=== PATIENT | male | born 1955 | race Caucasian/White ===

== ENCOUNTER 2018-05-21 14:11 | Inpatient (IN) ==
[2018-05-21] MEDS ORDERED: Acetaminophen 325 MG Tablet PO ONE (15:20)
[2018-05-21] MEDS ORDERED: MethylPREDNISolone Sod Succinate Inj 125 MG/2 ML Vial IV.PUSH ONE (15:20)
--- NOTE | 2018-05-21 15:22 | ED ---
HPI General Chief complaint: Fever Stated complaint: Poss Fever Time Seen by Provider: 05/21/18 15:13 History of Present Illness HPI narrative: 63-year-old male with history of Parkinson's disease, hypertension and hyperlipidemia presents for evaluation of fever, cough. Symptoms started this morning. The cough is productive with little bit of sputum. Reports maximum temperature at home of 102 degrees. He denies abdominal pain, vomiting, diarrhea, dysuria, flank pain. Symptoms are moderate. No recent travel. No other complaints. Related Data Home Medications Medication Instructions Recorded Confirmed aspirin [Aspirin Childrens] 81 mg PO DAILY 05/21/18 05/21/18 carbidopa-levodopa [Sinemet] 2 tab PO QID 05/21/18 05/21/18 folic acid 0.4 mg PO DAILY 05/21/18 05/21/18 gabapentin 300 mg PO TID 05/21/18 05/21/18 metoprolol tartrate 50 mg PO BID 05/21/18 05/21/18 simvastatin 40 mg PO QPM 05/21/18 05/21/18 Allergies Allergy/AdvReac Type Severity Reaction Status Date / Time No Known Allergies Allergy Verified 05/21/18 14:49 Review of Systems ROS: all other systems reviewed are negative PMFSH Medical History Medical History High cholesterol (Acute) Hypertension (Acute) Parkinson disease (Acute) Social History Social History Substance History: No History of Abuse Second Hand Smoke Exposure: Yes Smoking Status: Current every day smoker Tobacco Type: Cigarettes How Often Do You Have a Drink Containing Alcohol: Never Recent Travel in [facility] within the Last 8 Weeks: No Recent Out of Country Travel within the Last 8 Weeks: No Exam Narrative Exam Narrative: GENERAL: Well-developed well-nourished male in no acute distress SKIN: Warm and dry. HEAD: Atraumatic. Normocephalic. EYES: Pupils equal and round. No scleral icterus. No injection or drainage. ENT: No nasal bleeding or discharge. Mucous membranes pink and moist. NECK: Trachea midline. No JVD. CARDIOVASCULAR: Regular rate and rhythm. No murmur appreciated. RESPIRATORY: No accessory muscle use. Wheezing and rhonchi noted bilaterally with some crackles in the right lung base. GASTROINTESTINAL: Abdomen soft, non-tender, nondistended. Hepatic and splenic margins not palpable. MUSCULOSKELETAL: No obvious deformities. No clubbing. No cyanosis. No edema. NEUROLOGICAL: Awake and alert. No obvious cranial nerve deficits. Motor grossly within normal limits. Tremor noted. PSYCHIATRIC: Appropriate mood and affect; insight and judgment normal. Course Initial Documented Vital Signs Temperature 100.3 F H 05/21/18 14:46 Pulse Rate 101 H 05/21/18 14:46 Respiratory Rate 18 05/21/18 14:46 Blood Pressure 143/69 H 05/21/18 14:46 Pulse Oximetry 92 L 05/21/18 14:46 Last Documented Vital Signs Temperature 99 F 05/21/18 17:20 Pulse Rate 80 05/21/18 15:42 Respiratory Rate 24 05/21/18 17:20 Blood Pressure 143/69 H 05/21/18 14:46 Pulse Oximetry 92 L 05/21/18 17:28 Medical Decision Making MDM Narrative Medical decision making narrative: The patient was placed on ECG monitoring pulse oximetry. Lab work, chest x-ray ordered. The patient was given Solu- Medrol and DuoNeb treatment. Lab work notable for WBC count of 12.7. Influenza antigen is negative. Concern is that the patient is developing pneumonia in the right lower lobe, the patient was started on Rocephin and azithromycin. After DuoNeb treatment and Solu-Medrol the patient was ambulated and his pulse oximetry is 89% while walking. Therefore the patient will be admitted for further treatment. Medical Screen Exam Complete: Yes Emergency Medical Condition: Yes Differential Diagnosis Differential Diagnosis: Pneumonia, COPD, bronchitis, influenza Lab Data Result diagrams: 05/21/18 15:30 05/21/18 15:30 Lab Results 05/21/18 05/21/18 05/21/18 Range/Units 15:30 15:30 15:47 WBC 12.7 H (4.0-11.0) th/mm3 RBC 4.64 (4.50-5.90) mil/mm3 Hgb 16.1 (13.0-17.0) gm/dL Hct 44.6 (39.0-51.0) % MCV 96.1 (80.0-100.0) fL MCH 34.7 H (27.0-34.0) pg MCHC 36.1 H (32.0-36.0) % RDW 12.8 (11.6-17.2) % Plt Count 245 (150-450) th/mm3 MPV 7.4 (7.0-11.0) fL Neut % (Auto) 87.5 H (16.0-70.0) % Lymph % (Auto) 6.6 L (9.0-44.0) % [place] % (Auto) 4.9 (0.0-8.0) % Eos % (Auto) 0.4 (0.0-4.0) % Baso % (Auto) 0.6 (0.0-2.0) % Neut # (Auto) 11.1 H (1.8-7.7) th/mm3 Lymph # (Auto) 0.8 L (1.0-4.8) th/mm3 [place] # (Auto) 0.6 (0.0-0.9) th/mm3 Eos # (Auto) 0.1 (0.0-0.4) th/mm3 Baso # (Auto) 0.1 (0.0-0.2) th/mm3 WBC Differential . Differential Comment Auto diff final Sodium 138 (136-145) meq/L Potassium 4.1 (3.5-5.1) meq/L Chloride 104 (98-107) meq/L Carbon Dioxide 27.4 (21.0-32.0) meq/L Anion Gap 7 (5-15) meq/L BUN 11 (7-18) mg/dL Creatinine 1.06 (0.60-1.30) mg/dL Estimated GFR 70 L (>89) mL/min Random Glucose 114 H (74-106) mg/dL Lactic Acid 1.7 (0.4-2.0) mmol/L Calcium 8.4 L (8.5-10.1) mg/dL Magnesium 1.5 (1.5-2.5) mg/dL Total Bilirubin 0.6 (0.2-1.0) mg/dL AST 11 L (15-37) U/L ALT 8 L (12-78) U/L Alkaline Phosphatase 57 (45-117) U/L Total Protein 7.0 (6.4-8.2) g/dL Albumin 3.8 (3.4-5.0) g/dL Imaging Data Radiologist's impression: Chest X-Ray 05/21/18 15:19 CONCLUSION: Negative for acute process Discharge Plan Discharge Disposition Patient Disposition: ED Admit(ED Internal Use Only) Discharge Condition Condition: Stable Discharge Order Discharge Orders: ED Use Only Admit Order (Routine); Ordered 05/21/18 Ordered By: Robin Hung Discharge Details Diagnosis: Hypoxia, Bronchitis, Pneumonia Physicians Team ED Provider: Frankie Pineda ED Midlevel Provider: Robin Hung Primary Care Provider: UNKNOWN, Rxs /Orders / Referrals /Forms Prescriptions: No Action simvastatin 20 mg Tablet 40 mg PO QPM RF: 0 gabapentin 300 mg Capsule 300 mg PO TID RF: 0 aspirin [Aspirin Childrens] 81 mg Tablet,Chewable 81 mg PO DAILY RF: 0 carbidopa-levodopa [Sinemet] 25-100 mg Tablet 2 tab PO QID RF: 0 metoprolol tartrate 25 mg Tablet 50 mg PO BID RF: 0 folic acid 400 mcg Tablet 0.4 mg PO DAILY RF: 0 Discharge Interventions Interventions: Vital Signs Last Done: 05/21/18 17:28 Status ED Status: With Doctor
--- NOTE | 2018-05-21 15:42 | XR ---
EXAM DATE: 05/21/2018 3:36 PM EST AGE/SEX: 63 years / Male INDICATIONS: . Shortness of breath, cough, and chest tightness with fever. CLINICAL DATA: This is the patient's initial encounter. Patient reports that signs and symptoms have been present for 3 days and indicates a pain score of 0/10. MEDICAL/SURGICAL HISTORY: None. None. COMPARISON: No prior exams available for comparison. FINDINGS: PA and lateral views of the chest demonstrate the lungs to be symmetrically aerated without evidence of mass, infiltrate or effusion. The cardiomediastinal contours are unremarkable. Osseous structures are intact. CONCLUSION: Negative for acute process Electronically signed by: Humberto Jiang MD Board Certified Radiologist 05/21/2018 3:40 PM EST
[2018-05-21] MEDS ORDERED: Azithromycin Inj 500 MG in Sodium Chlor 0.9% Inj 250 ML IV.SIG ONE (15:44)
[2018-05-21 16:03] LABS: Baso # (Auto) 0.1 th/mm3 (0.0-0.2); Baso % (Auto) 0.6 % (0.0-2.0); Eos # (Auto) 0.1 th/mm3 (0.0-0.4); Eos % (Auto) 0.4 % (0.0-4.0); Hematocrit 44.6 % (39.0-51.0); Hemoglobin 16.1 gm/dL (13.0-17.0); Lymph # (Auto) 0.8 th/mm3 (1.0-4.8); Lymph % (Auto) 6.6 % (9.0-44.0); Mean Corpuscular Hemoglobin 34.7 pg (27.0-34.0); Mean Corpuscular Volume 96.1 fL (80.0-100.0); Mean Platelet Volume 7.4 fL (7.0-11.0); Mono # (Auto) 0.6 th/mm3 (0.0-0.9); Mono % (Auto) 4.9 % (0.0-8.0); Neut # (Auto) 11.1 th/mm3 (1.8-7.7); Neut % (Auto) 87.5 % (16.0-70.0); Platelet Count 245 th/mm3 (150-450); Red Blood Count 4.64 mil/mm3 (4.50-5.90); Red Cell Distribution Width 12.8 % (11.6-17.2); White Blood Count 12.7 th/mm3 (4.0-11.0)
[2018-05-21 16:05] LABS: Mean Corpuscular HGB Conc 36.1 % (32.0-36.0)
[2018-05-21 16:23] LABS: Alanine Aminotransferase 8 U/L (12-78); Albumin 3.8 g/dL (3.4-5.0); Anion Gap 7 meq/L (5-15); Aspartate Aminotransferase 11 U/L (15-37); Blood Urea Nitrogen 11 mg/dL (7-18); Calcium 8.4 mg/dL (8.5-10.1); Carbon Dioxide 27.4 meq/L (21.0-32.0); Chloride 104 meq/L (98-107); Glomerular Filtration Rate 70 mL/min (>89); Glucose,Random 114 mg/dL (74-106); Magnesium 1.5 mg/dL (1.5-2.5); Potassium 4.1 meq/L (3.5-5.1); Sodium 138 meq/L (136-145)
[2018-05-21 16:25] LABS: Alkaline Phosphatase 57 U/L (45-117)
--- NOTE | 2018-05-21 18:21 | P.HP ---
History of Present Illness Primary Care Physician: UNKNOWN History of Present Illness: 63-year-old white male being admitted for acute hypoxic respiratory failure. Patient was in his usual state of health until about yesterday evening start beginning feeling tired. This morning he had developed some nausea but no vomiting and no abdominal pain, his measured he had a fever of about 102. Patient reports having some nasal congestion and a wet sounding cough, denies having any angela chest pain or shortness of breath. In the emergency department he was noted to have his saturations dipped to 89% while ambulating, minimal leukocytosis at 12 K,, had some mild wheezing on exam by ED staff.. Chest x-ray done as well as EKG which I apparently reviewed which is negative for any acute findings. Flu swab was negative, blood cultures were obtained. Patient was given Rocephin and azithromycin and Solu- Medrol. Inpatient Certification: I certify that the inpatient services were ordered in accordance with Medicare regulations governing the order. This includes certification that hospital inpatient services are reasonable and necessary and in the case of services not specified as inpatient-only under 42 CFR 419.22(n), that they are appropriately provided as inpatient services in accordance to with the 2-midnight benchmark under 43 CFR 412.3(e) Estimated Total Length of Stay (Days): 2 Plans for Post Hospital Care: Not yet determined Review of Systems All other systems reviewed negative except as stated in HPI PMFSH - History History Provided By: Patient - Medical History Medical History: Medical History (Last Reviewed 05/21/18 @ 18:19 by Hany Ruelas MD) High cholesterol Hypertension Parkinson disease - Family History Family History: Family History (Last Updated 05/21/18 @ 18:19 by Hany Ruelas MD) Other Colon cancer Diabetes - Social History I have reviewed the patient's Social History: Yes - Tobacco History Second Hand Smoke Exposure: Yes Tobacco Use In Past 30 Days: Yes Smoking Status: Current every day smoker Tobacco Type: Cigarettes - Alcohol History How Often Do You Have a Drink Containing Alcohol: Never - Substance Use History Substance History: No History of Abuse - Travel History Recent Travel in the [place] Within the Last 8 Weeks: No Recent Travel Out of the Country Within the Last 8 Weeks: No - Immunization History Tetanus Immunization: <5 Years Medications and Allergies Active Medications: Active Medications Sodium Chloride (Ns Flush) 2 ml IV.FLUSH BID CHAPARRITA Sodium Chloride (Ns Flush) 2 ml IV.FLUSH PRN PRN PRN Reason: FLUSH AFTER USING IV ACCESS Allergies Allergy/AdvReac Type Severity Reaction Status Date / Time No Known Allergies Allergy Verified 05/21/18 14:49 Home Medications Medication Instructions Recorded Confirmed Type aspirin [Aspirin Childrens] 81 mg PO DAILY 05/21/18 05/21/18 History carbidopa-levodopa [Sinemet] 2 tab PO QID 05/21/18 05/21/18 History folic acid 0.4 mg PO DAILY 05/21/18 05/21/18 History gabapentin 300 mg PO TID 05/21/18 05/21/18 History metoprolol tartrate 50 mg PO BID 05/21/18 05/21/18 History simvastatin 40 mg PO QPM 05/21/18 05/21/18 History Exam Vital signs: Vital Signs 05/21/18 14:46 05/21/18 15:42 05/21/18 16:04 Temperature 100.3 F H 100.3 F H Pulse Rate 101 H 80 Respiratory Rate 18 20 Blood Pressure 143/69 H Pulse Oximetry 92 L 05/21/18 17:20 05/21/18 17:28 Temperature 99 F Pulse Rate 95 H Respiratory Rate 24 20 Blood Pressure 91/53 L Pulse Oximetry 89 L 93 L Intake & Output 05/20/18 05/21/18 05/21/18 18:59 06:59 18:59 Intake Total 350 / 350 Balance 350 / 350 Weight 89.811 kg Intake: IV 350 / 350 Azithromycin Inj 500 MG In NS 250 / 250 Inj 250 ML @ 250 mls/hr IV.SIG ONCE ONE Rx#:[id number] Rocephin Inj 2,000 MG In NS Inj 100 / 100 100 ML @ 200 mls/hr IV.SIG ONCE ONE Rx#:[id number] Narrative: VS: afebrile GENERAL: Middle-aged white male, well-nourished, no acute distress SKIN: Warm and dry. EYES: No scleral icterus. No injection or drainage. ENT: No nasal bleeding or discharge. Mucous membranes pink and moist. CARDIOVASCULAR: Regular rate and rhythm. no murmurs RESPIRATORY: No accessory muscle use. Very faint end expiratory wheezing GASTROINTESTINAL: Abdomen soft, non-tender, nondistended. Extremities: No clubbing, cyanosis, or edema. No obvious deformities. MUSCULOSKELETAL: adequate muscle bulk and tone for age and habitus NEUROLOGICAL: Awake and alert. No obvious cranial nerve deficits. No facial droop nor slurred speech noted. PSYCHIATRIC: Appropriate mood and affect; insight and judgment normal. Results - Labs CBC & Chem 7: 05/21/18 15:30 05/21/18 15:30 Labs: Laboratory Results - last 24 hr 05/21/18 05/21/18 05/21/18 15:30 15:30 15:47 WBC 12.7 H RBC 4.64 Hgb 16.1 Hct 44.6 MCV 96.1 MCH 34.7 H MCHC 36.1 H RDW 12.8 Plt Count 245 MPV 7.4 Neut % (Auto) 87.5 H Lymph % (Auto) 6.6 L [place] % (Auto) 4.9 Eos % (Auto) 0.4 Baso % (Auto) 0.6 Neut # (Auto) 11.1 H Lymph # (Auto) 0.8 L [place] # (Auto) 0.6 Eos # (Auto) 0.1 Baso # (Auto) 0.1 WBC Differential . Differential Comment Auto diff final Sodium 138 Potassium 4.1 Chloride 104 Carbon Dioxide 27.4 Anion Gap 7 BUN 11 Creatinine 1.06 Estimated GFR 70 L Random Glucose 114 H Lactic Acid 1.7 Calcium 8.4 L Magnesium 1.5 Total Bilirubin 0.6 AST 11 L ALT 8 L Alkaline Phosphatase 57 Total Protein 7.0 Albumin 3.8 - Imaging Impressions Chest X-Ray 05/21/18 15:19 CONCLUSION: Negative for acute process Caprini VTE Risk Assessment Caprini VTE Risk Assessment: Moderate/High Risk (score >= 2) Caprini Risk Assessment Model: Point Value = 1 Point Value = 2 Point Value = 3 Point Value = 5 Age 41-60 Minor surgery BMI > 25 kg/m2 Swollen legs Varicose veins or History of unexplained or recurrent spontaneous Oral contraceptives or hormone replacement Sepsis (< 1 month) Serious lung disease, including pneumonia (< 1 month) Abnormal pulmonary function Acute myocardial infarction Congestive heart failure (< 1 month) History of inflammatory bowel disease Medical patient at bed rest Age 61-74 Arthroscopic surgery Major open surgery (> 45 min) Laparoscopic surgery (> 45 min) Malignancy Confined to bed (> 72 hours) Immobilizing plaster cast Central venous access Age >= 75 History of VTE Family history of VTE Factor V Leiden Prothrombin [id number] Lupus anticoagulant Anticardiolipin antibodies Elevated serum homocysteine Heparin-induced thrombocytopenia Other congenital or acquired thrombophilia Stroke (< 1 month) Elective arthroplasty Hip, pelvis, or leg fracture Acute spinal cord injury (< 1 month) Prophylaxis Regimen: Total Risk Factor Score Risk Level Prophylaxis Regimen 0-1 Low Early ambulation 2 Moderate Order ONE of the following: *Sequential Compression Device (SCD) *Heparin 5000 units SQ BID 3-4 Higher Order ONE of the following medications: *Heparin 5000 units SQ TID *Enoxaparin/Lovenox 40 mg SQ daily (WT < 150 kg, CrCl > 30 mL/min) *Enoxaparin/Lovenox 30 mg SQ daily (WT < 150 kg, CrCl > 10-29 mL/min) *Enoxaparin/Lovenox 30 mg SQ BID (WT < 150 kg, CrCl > 30 mL/min) AND/OR *Sequential Compression Device (SCD) 5 or more Highest Order ONE of the following medications: *Heparin 5000 units SQ TID (Preferred with Epidurals) *Enoxaparin/Lovenox 40 mg SQ daily (WT < 150 kg, CrCl > 30 mL/min) *Enoxaparin/Lovenox 30 mg SQ daily (WT < 150 kg, CrCl > 10-29 mL/min) *Enoxaparin/Lovenox 30 mg SQ BID (WT < 150 kg, CrCl > 30 mL/min) AND *Sequential Compression Device (SCD) Assessment and Plan - Plan 63-year-old white male being admitted for acute hypoxic respiratory failure Acute hypoxic respiratory failure COPD exacerbation likely culprit Steroids, duo nebs, albuterol as needed for shortness of breath Oxygen supplementation, consider home walk test in a.m. if not weaned off to room air by then Possible sepsis w/ 101 HR and 12k white count Fever -IVFs neg fluswab, Likely viral URI is the chest x-ray is negative -f/u blood cultures but likely negative May consider continuing antibiotics but follow-up with pro-calcitonin to see if antibiotics are definitively needed afterwards by time of discharge Parkinsons HTN HYL - continue home meds lovenox
[2018-05-21] MEDS ORDERED: Sod Chloride 0.9% Inj 1,000 ML IV.SIG SCH ×2 (18:30)
[2018-05-21] MEDS: Metoprolol Tartrate 25 MG Tablet PO SCH (21:41)
[2018-05-21] MEDS: MethylPREDNISolone Sod Succinate Inj 125 MG/2 ML Vial IV.PUSH SCH (21:43)
[2018-05-21] MEDS: Sod Chloride 0.9% Inj 1,000 ML IV.CONT SCH (23:14)
[2018-05-22] MEDS: Sod Chloride 0.9% Inj 1,000 ML IV.CONT SCH ×2 (06:48→17:43)
[2018-05-22] MEDS: Enoxaparin Inj 40 MG/0.4 ML Syringe SQ SCH (08:39)
[2018-05-22] MEDS: Gabapentin 300 MG Capsule PO SCH ×3 (08:39→17:40)
[2018-05-22] MEDS: Metoprolol Tartrate 25 MG Tablet PO SCH ×2 (08:39→20:48)
[2018-05-22] MEDS: Folic Acid 1 MG Tablet PO SCH (08:39)
[2018-05-22] MEDS: MethylPREDNISolone Sod Succinate Inj 125 MG/2 ML Vial IV.PUSH SCH ×2 (08:39→20:50)
--- NOTE | 2018-05-22 12:37 | P.PNIM ---
Subjective Interval history: Patient reports he is feeling better overall. He had some chills and sweats earlier today. Breathing more comfortable. Physical Exam Vital signs: Last Vital Signs Temp 98.4 F 05/22/18 08:00 Pulse 88 05/22/18 09:06 Resp 18 05/22/18 09:06 BP 127/60 05/22/18 08:00 Pulse Ox 94 L 05/22/18 09:06 Intake & Output 05/20/18 05/21/18 05/22/18 05/23/18 06:59 06:59 06:59 06:59 Intake Total 1470 / 1470 Output Total 650 / 650 400 / 400 Balance 820 / 820 -400 / -400 Weight 88.6 kg Narrative: GENERAL: This is a well-nourished, well-developed patient, in no apparent distress. CARDIOVASCULAR: Normal rate and regular rhythm without murmurs, gallops, or rubs. RESPIRATORY: Good respiratory efforts. Some faint and diffuse rhonchi and wheezing. GASTROINTESTINAL: Abdomen soft, non-tender, non-distended. Normal active bowel sounds MUSCULOSKELETAL: Extremities without cyanosis, or edema. NEURO: Alert & Oriented x4 to person, place, time, situation. Moves all ext x4 PSYCH: Appropriate mood and affect. Results Labs CBC & Chem 7: 05/21/18 15:30 05/21/18 15:30 Labs: Microbiology 05/21/18 15:30 Blood - Peripheral Aerobic Blood Culture - Preliminary No growth in 1 day 05/21/18 15:30 Blood - Peripheral Anaerobic Blood Culture - Preliminary No growth in 1 day 05/21/18 15:47 Blood - Peripheral Aerobic Blood Culture - Preliminary No growth in 1 day 05/21/18 15:47 Blood - Peripheral Anaerobic Blood Culture - Preliminary No growth in 1 day 05/21/18 15:50 Nasal Wash Influenza Types A,B Antigen - Final Negative for FLU A and B antigen Infection due to influenza A or B cannot be ruled out since the antigen present in the sample may be below the detection limit of the test. Imaging Imaging: Impressions Chest X-Ray 05/21/18 15:19 CONCLUSION: Negative for acute process Assessment and Plan Plan 63-year-old white male admitted for acute hypoxic respiratory failure likely secondary to COPD exacerbation and possible atypical pneumonia. Acute hypoxic respiratory failure: Likely combination of COPD exacerbation and atypical pneumonia Continue steroids, duo nebs, albuterol as needed for shortness of breath Oxygen supplementation, wean off as tolerated. Possible sepsis w/ 101 HR and 12k white count, reported fevers on admission neg fluswab, Likely atypical pneumonia versus viral URI. chest x-ray is negative -Blood cultures so far negative. Plan to transition to oral antibiotics tomorrow if he continues to improve and cultures remain negative. Parkinsons HTN - continue home meds Progress Note: Quality VTE Deep Vein Thrombosis/Pulmonary Embolism Present on Admission: No
[2018-05-22] MEDS ORDERED: Azithromycin Inj 500 MG in Sodium Chlor 0.9% Inj 250 ML IV.SIG SCH (19:00)
[2018-05-23] MEDS: Sod Chloride 0.9% Inj 1,000 ML IV.CONT SCH ×2 (00:24→06:08)
--- NOTE | 2018-05-23 01:02 | ECG ---
Date Performed: 05/21/2018 Time Performed: 16:25:49 PTAGE: 63 years EKG: Sinus rhythm NORMAL ECG NO PREVIOUS TRACING DOCTOR: Otilio Kasper Interpretating Date/Time 05/23/2018 01:01:51
[2018-05-23] MEDS: Metoprolol Tartrate 25 MG Tablet PO SCH (08:46)
[2018-05-23] MEDS: MethylPREDNISolone Sod Succinate Inj 125 MG/2 ML Vial IV.PUSH SCH (08:47)
[2018-05-23] MEDS: Enoxaparin Inj 40 MG/0.4 ML Syringe SQ SCH (08:47)
[2018-05-23] MEDS: Folic Acid 1 MG Tablet PO SCH (08:47)
[2018-05-23] MEDS: Gabapentin 300 MG Capsule PO SCH ×2 (08:47→12:32)
[2018-05-23 10:21] LABS: Hematocrit 43.6 % (39.0-51.0); Hemoglobin 15.1 gm/dL (13.0-17.0); Mean Corpuscular HGB Conc 34.7 % (32.0-36.0); Mean Corpuscular Hemoglobin 33.8 pg (27.0-34.0); Mean Corpuscular Volume 97.6 fL (80.0-100.0); Mean Platelet Volume 7.9 fL (7.0-11.0); Platelet Count 251 th/mm3 (150-450); Red Blood Count 4.47 mil/mm3 (4.50-5.90); Red Cell Distribution Width 13.2 % (11.6-17.2); White Blood Count 13.9 th/mm3 (4.0-11.0)
[2018-05-23 10:40] LABS: Calcium 8.2 mg/dL (8.5-10.1); Carbon Dioxide 26.7 meq/L (21.0-32.0); Potassium 4.2 meq/L (3.5-5.1)
[2018-05-23 12:37] VITALS: BP 149/72; TEMP 98.3; O2SAT 90
[2018-05-23 12:45] VITALS: PULSE 92; RESP 18
--- NOTE | 2018-05-23 13:39 | P.DS ---
DS: Providers Date of admission: 05/21/18 17:38 Primary care physician: UNKNOWN Brief History from admission: HPI as documented by the admitting physician: 63-year-old white male being admitted for acute hypoxic respiratory failure. Patient was in his usual state of health until about yesterday evening start beginning feeling tired. This morning he had developed some nausea but no vomiting and no abdominal pain, his measured he had a fever of about 102. Patient reports having some nasal congestion and a wet sounding cough, denies having any angela chest pain or shortness of breath. In the emergency department he was noted to have his saturations dipped to 89% while ambulating, minimal leukocytosis at 12 K,, had some mild wheezing on exam by ED staff.. Chest x-ray done as well as EKG which I apparently reviewed which is negative for any acute findings. Flu swab was negative, blood cultures were obtained. Patient was given Rocephin and azithromycin and Solu- Medrol. Patient update on day of discharge: Patient reports he is feeling much better today. He is off oxygen. He is breathing more comfortable. No chest pain. DS: Summary 63-year-old white male admitted for acute hypoxic respiratory failure likely secondary to COPD exacerbation and possible atypical pneumonia. Evaluation and treatment course detailed below: Acute hypoxic respiratory failure: Likely combination of COPD exacerbation and atypical pneumonia Patient treated with steroids, duo nebs, albuterol as needed for shortness of breath Oxygen supplementation, which was weaned off. - He is discharged on oral antibiotics and steroids to complete the course of treatment. Possible sepsis w/ 101 HR and 12k white count, reported fevers on admission neg fluswab, Likely atypical pneumonia versus viral URI. chest x-ray is negative -Blood cultures so far negative. Sepsis resolved. Parkinsons HTN - continue home med Time Spent with Patient Total time spent providing and/or coordinating discharge services: Quality: VTE Deep Vein Thrombosis/Pulmonary Embolism Present on Admission: No Exam Narrative Exam Narrative: GENERAL: This is a well-nourished, well-developed patient, in no apparent distress. CARDIOVASCULAR: Normal rate and regular rhythm without murmurs, gallops, or rubs. RESPIRATORY: Good respiratory efforts. Faint end expiratory wheeze. Otherwise clear to auscltation GASTROINTESTINAL: Abdomen soft, non-tender, non-distended. Normal active bowel sounds MUSCULOSKELETAL: Extremities without cyanosis, or edema. NEURO: Alert & Oriented x4 to person, place, time, situation. Moves all ext x4 PSYCH: Appropriate mood and affect. Results Labs on day of discharge: Labs from last 24 hours 05/23/18 05/23/18 09:22 09:22 WBC 13.9 H RBC 4.47 L Hgb 15.1 Hct 43.6 MCV 97.6 MCH 33.8 MCHC 34.7 RDW 13.2 Plt Count 251 MPV 7.9 Sodium 142 Potassium 4.2 Chloride 106 Carbon Dioxide 26.7 Anion Gap 9 BUN 19 H Creatinine 0.99 Estimated GFR 76 L Random Glucose 159 H Calcium 8.2 L Preliminary micro results at discharge 05/21/18 15:30 Aerobic Blood Culture - Preliminary Blood - Peripheral No growth in 2 days Anaerobic Blood Culture - Preliminary No growth in 2 days 05/21/18 15:47 Aerobic Blood Culture - Preliminary Blood - Peripheral No growth in 2 days Anaerobic Blood Culture - Preliminary No growth in 2 days Impressions ITS Impressions Chest X-Ray 05/21/18 15:19 CONCLUSION: Negative for acute process Discharge Plan Discharge Disposition Patient Disposition: 01 Discharge Home Discharge Condition Condition: Stable Discharge Order Discharge Orders: Discharge Order (Routine); Ordered 05/23/18 Ordered By: Charissa Espinoza Physicians Team ED Provider: Frankie Pineda ED Midlevel Provider: Robin Hung Primary Care Provider: UNKNOWN, Attending Provider: Charissa Espinoza Rxs /Orders / Referrals /Forms Prescriptions: New azithromycin 250 mg tablet 250 mg PO DAILY 3 Days Qty: 3 RF: 0 prednisone 20 mg tablet 20 mg PO DAILY 3 Days Qty: 3 RF: 0 cefuroxime axetil 500 mg tablet 500 mg PO BID 4 Days Qty: 8 RF: 0 albuterol sulfate 90 mcg/actuation HFA aerosol inhaler 1 inh INHALATION Q4-6H PRN (Reason: shortness of breath or wheezing) Qty: 18 RF: 0 Continue simvastatin 20 mg Tablet 40 mg PO QPM RF: 0 gabapentin 300 mg Capsule 300 mg PO TID RF: 0 aspirin [Aspirin Childrens] 81 mg Tablet,Chewable 81 mg PO DAILY RF: 0 carbidopa-levodopa [Sinemet] 25-100 mg Tablet 2 tab PO QID RF: 0 metoprolol tartrate 25 mg Tablet 50 mg PO BID RF: 0 folic acid 400 mcg Tablet 0.4 mg PO DAILY RF: 0 Referrals: UNKNOWN, [Primary Care Provider] - See Instructions Status ED Status: Left Department
== END 2018-05-23 17:44 | disposition home or self-care (01) ==
LOC: NEPC 14:11 → NEDA 17:38 → N04 18:40
PROVIDERS: ADMIT Family Medicine; ATTEND Family Medicine